=== PATIENT | male | born 2000 | race American Indian/Alaskan Native ===

== ENCOUNTER 2021-06-21 17:13 | Emergency (ER) | payer SELFPAY ==
[2021-06-21 18:07] VITALS: BP 131/74
[2021-06-21] MEDS ORDERED: IBUPROFEN 600 MG TAB PO ONE (20:38)
[2021-06-21] MEDS ORDERED: ACETAMINOPHEN 500 MG TAB PO ONE (20:38)
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
== END 2021-06-21 23:04 | disposition left against medical advice (07) ==
LOC: ED 17:13
DX: M62.838 Other muscle spasm (principal); M62.830 Muscle spasm of back; V49.59XA Passenger injured in collision with other motor vehicles in traffic accident, initial encounter; Y92.410 Unspecified street and highway as the place of occurrence of the external cause; Y93.89 Activity, other specified; Y99.8 Other external cause status
CPT/HCPCS: 99281